=== PATIENT | female | born 1945 | race Caucasian/White ===

== ENCOUNTER → 2017-11-28 | Outpatient (CLI) | payer OTHER | LOC: GIMAGING 13:57 | PROVIDERS: ATTEND Registered Nurse | DX: R10.9 Unspecified abdominal pain (principal) | CPT/HCPCS: 74018-PO ==

== ENCOUNTER 2017-12-27 09:19 | Emergency (ER) | payer OTHER ==
[2017-12-27] MEDS ORDERED: KETOROLAC 30 MG/1 ML SDV IVP ONE (09:49)
--- NOTE | 2017-12-27 09:53 | EDPHY ---
H & P Stated Complaint: L flank pain--CT 12/23 +kidney stones Time Seen by Provider: 12/27/17 09:32 HPI/ROS: CHIEF COMPLAINT: Flank and left lower quadrant pain HISTORY OF PRESENT ILLNESS: This is a 72-year-old female with a known history of kidney stones and 4 prior episodes of ureterolithiasis/ureteral colic. Her most recent episode was on 11/26/2017. On November 28 she had a KUB performed which showed probable distal left ureteral calculus and left nephrolithiasis. She followed up with a urologist, Dr. Finley in [place], and had a CT scan of the abdomen and pelvis performed 4 days ago. This showed 3 renal stones on the left and 1 renal stone on the right. At that time no ureteral stones were noted. She presents this morning with the relatively abrupt onset of left lower quadrant pain radiating into the groin. She also has left flank pain. No dysuria, urgency, frequency, or hematuria. No fever. No recent constipation. The pain she is experiencing today is consistent with her previous episodes of ureteral colic. She had normal renal function on November 28. She is requesting pain medication. REVIEW OF SYSTEMS: A ten point review of systems was performed and is negative with the exception of the items mentioned in the HPI. Past medical history: Nephrolithiasis Past surgical history: None Social history: She has 2 children, son and a daughter. General Appearance: Alert. Vital signs reviewed. Blood pressure 168/81. Eyes: Pupils equal and round, no conjunctival injection, no discharge. Anicteric. ENT, Mouth: Mucous membranes are moist, no oropharyngeal erythema or edema. Neck: No lymphadenopathy, supple. Respiratory: Lungs are clear to auscultation; no wheezes, rales, or rhonchi. Cardiovascular: Regular rate and rhythm; no murmur, rub, or gallop. Gastrointestinal: Abdomen is soft and mildly tender in the left lower quadrant without guarding, no masses or organomegaly, bowel sounds normal. Skin: Warm and dry, no rashes on exposed skin, normal color. Back: Nontender to palpation over the thoracolumbar spine. No CVAT. Extremities: No lower extremity edema, no calf tenderness or swelling. Neurological: Alert and oriented. Moving all four extremities easily and equally. Psychiatric: Normal affect. - Medical/Surgical History Hx Asthma: No Hx Chronic Respiratory Disease: No Hx Diabetes: No Hx Cardiac Disease: No Hx Renal Disease: No Hx Cirrhosis: No Hx Alcoholism: No Hx HIV/AIDS: No Hx Splenectomy or Spleen Trauma: No Other PMH: kidney stones - Social History Smoking Status: Never smoked Constitutional: Initial Vital Signs Temperature (C) 36.5 C 12/27/17 09:23 Heart Rate 74 12/27/17 09:23 Respiratory Rate 18 12/27/17 09:23 Blood Pressure 168/81 H 12/27/17 09:23 O2 Sat (%) 97 12/27/17 09:23 O2 Delivery Mode Room Air Allergies/Adverse Reactions: No Known Allergies Allergy (Unverified 12/27/17 09:23) Home Medications: Medication Instructions Recorded Hydrocodone/APAP 5/325 [[place] 1 - 2 tab PO Q4 PRN #10 tab 12/27/17 5/325 (RX)] Ondansetron Odt [Zofran Odt 4 mg 4 mg PO Q4 PRN #10 tab 12/27/17 (RX)] Medical Decision Making ED Course/Re-evaluation: Given her past medical history this is likely left ureterolithiasis. Renal function is being rechecked. She would like to avoid opiates if possible, as they make her groggy and sick to her stomach. Creatinine is 0.7 based on I- STAT. Will try Toradol initially. She has had recent diagnostic studies and I do not feel that these need to be repeated. 10:35 a.m.. No pain relief with 50 mg IV Toradol. Morphine has worked for her in the past and she would like to try some now. She received 4 mg of IV morphine along with Zofran and achieve some pain relief with this medication, but continued with some discomfort. A 2nd dose of for mg IV morphine was given. She was serially examined and her exam remained unchanged. She became almost pain free and felt comfortable returning home. I am writing her prescription for some pain medication, as she does not have any at home. She has follow-up arranged with her urologist. The danger signs that should prompt her to be re-evaluated have been reviewed with her. She understands that we did no imaging and that the diagnosis is therefore provisional, based upon history and physical findings and symptoms. I did not realize that urine was not obtained for urinalysis. Unfortunately she did not provide a sample. I do not think that she has a urinary tract infection/pyelonephritis but did not review a urinalysis. Other diagnostic possibilities included an inguinal hernia, which I do not find on exam. She does not have significant abdominal tenderness with exam and I do not think that this is diverticulitis. There is nothing to suggest a bowel obstruction. Differential Diagnosis: Flank pain including but not limited to musculoskeletal causes, kidney stone, pyelonephritis, shingles, and intra-abdominal causes such as diverticulitis and appendicitis. - Data Points Medications Given: Discontinued Medications Ketorolac Tromethamine (Toradol) 15 mg IVP EDNOW ONE Stop: 12/27/17 09:50 Last Admin: 12/27/17 10:05 Dose: 15 mg Morphine Sulfate (Morphine) 4 mg IVP EDNOW ONE Stop: 12/27/17 10:34 Last Admin: 12/27/17 10:38 Dose: 4 mg Morphine Sulfate (Morphine) 4 mg IVP EDNOW ONE Stop: 12/27/17 11:59 Last Admin: 12/27/17 12:21 Dose: 4 mg Ondansetron HCl (Zofran) 4 mg IVP EDNOW ONE Stop: 12/27/17 10:34 Last Admin: 12/27/17 10:38 Dose: 4 mg Ondansetron HCl (Zofran) 4 mg IVP EDNOW ONE Stop: 12/27/17 13:20 Last Admin: 12/27/17 13:20 Dose: 4 mg Departure - Departure Disposition: Home, Routine, Self-Care Clinical Impression: Ureterolithiasis Condition: Good Instructions: Kidney Stones (ED) Additional Instructions: Continue with ibuprofen for pain--400 mg every 8 hours (take with food). Use the Vicodin ([place]) for more severe pain. Let Dr. Finley know that you were in the ED with path. Return if you have persistent intractable pain, vomiting, fever, difficulty urinating, any new or concerning symptoms. Referrals: Guille Finley [Primary Care Provider] - As per Instructions Prescriptions: Hydrocodone/APAP 5/325 [[place] 5/325 (RX)] 1 - 2 tab PO Q4 PRN #10 tab PRN Reason: pain Ondansetron Odt [Zofran Odt 4 mg (RX)] 4 mg PO Q4 PRN #10 tab PRN Reason: nausea
[2017-12-27] MEDS ORDERED: ONDANSETRON 4 MG/2 ML VIAL IVP ONE ×2 (10:33→13:19)
[2017-12-27] MEDS ORDERED: ONDANSETRON 4 MG/2 ML VIAL ONE (13:15)
[2017-12-27 14:19] VITALS: BP 176/78
== END 2017-12-27 14:42 | disposition home or self-care (01) ==
DX: N20.1 Calculus of ureter (principal)
CPT/HCPCS: 96374; 96375; 96376; 99284; J1885; J2270; J2405; 82947-QW